=== PATIENT | male | born 1950 | race Caucasian/White ===

== ENCOUNTER 2022-02-10 06:18 | Day surgery (SDC) | payer OTHER, SELFPAY ==
[2022-02-10] MEDS: Tropicam./Phenyleph. (1/2.5%) 5 ML BTL OS ×3 (06:50→07:06)
[2022-02-10 06:52] VITALS: BP 175/88; PULSE 78; RESP 16; TEMP 36.5; O2SAT 98
[2022-02-10 07:09] VITALS: BP 152/83; PULSE 70
--- NOTE | 2022-02-10 07:11 | ANES.PREOP_ITS ---
General Info Date of Service Date Performed: 02/10/22 Height: 5 ft 10 in Weight: 119.4 kg Body Mass Index (BMI): 37.8 Surgical Procedure: Operation Date: 02/10/22 07:40 Proposed Procedure Side Surgeon p Cataract Extraction with IOL Implant Left Joo Martinez MD Meds Allergies and Home Medications Allergies Allergy/AdvReac Type Severity Reaction Status Date / Time ezetimibe AdvReac Severe Other (See Unverified 02/10/22 06:46 Comment) lisinopril AdvReac Mild Other (See Unverified 02/10/22 06:46 Comment) Home Medication Medication Instructions Recorded acetaminophen 650 mg tablet 650 mg PO Q12H PRN 02/06/22 antiarthritic combination no.2 900 900 mg PO DAILY 02/06/22 mg tablet atorvastatin 40 mg tablet 40 mg PO DAILY 02/06/22 cholecalciferol (vitamin D3) 125 5,000 unit PO DAILY 02/06/22 mcg (5,000 unit) tablet (Vitamin D3) diclofenac sodium 75 mg 75 mg PO BID PRN 02/06/22 tablet,delayed release duloxetine 60 mg capsule,delayed 60 mg PO DAILY 02/06/22 release losartan 100 mg tablet 100 mg PO DAILY 02/06/22 magnesium chloride 64 mg 128 mg PO DAILY 02/06/22 tablet,extended release metformin 1,000 mg tablet 1,000 mg PO BID 02/06/22 multivitamin 1 tab PO DAILY 02/06/22 pantoprazole 40 mg tablet,delayed 40 mg PO DAILY 02/06/22 release pregabalin 300 mg capsule 300 mg PO BID 02/06/22 Current Visit Medications: Current Medications Generic Name Dose Route Start Last Admin Trade Name Freq PRN Reason Stop Dose Admin Acetaminophen 1,000 mg 02/10/22 06:00 Acetaminophen 500 Mg Tab PO Q4H PRN PRN Miscellaneous Medication 0 ml 02/10/22 06:00 Prednisolone 1%, Moxifloxacin 0.5%, Nepafenac 0.1% 5ml Btl OS DIRECTED STEVEN Miscellaneous Medication 0 ml 02/10/22 06:00 02/10/22 07:06 Tropicam./Phenyleph. (1/2.5%) 5 Ml Btl OS 1 drp DIRECTED STEVEN Administration Tetracaine HCl 0 ml 02/10/22 06:00 Tetracaine 0.5% 4 Ml Btl OS DIRECTED STEVEN [facility] Medical History Medical History (Updated 02/10/22 @ 06:45 by Angélica Ruvalcaba) Eustachian tube dysfunction Hepatitis C last treatment 2012 Hx of cirrhosis Hypesthesia Microalbuminuria Palpitations Peripheral neuropathy r/t to treatment from hepatitis C Primary insomnia Sensorineural hearing loss, bilateral Spinal stenosis Trochanteric bursitis of right hip Surgical History Surgical History History of liver biopsy History of nasal surgery History of spinal surgery 06/25 Hx of arthroscopy of knee Hx of colonoscopy Hx of decompressive lumbar laminectomy 1996 Hx of esophagogastroduodenoscopy Hx of repair of rotator cuff Hx of total knee arthroplasty Tobacco Smoking/Tobacco Use Status: Never Alcohol Alcohol Intake: current Alcohol intake frequency: holidays/special occasions only Alcohol type: beer Substance Use Substance use: Rarely Substance use type: marijuana Details: Cannibus oil Vital Signs and Lab Results Vital Signs Most Recent Vital Signs in EMR: Most Recent Vital Signs Temp Pulse Resp BP Pulse Ox 36.5 C 70 16 152/83 H 98 02/10/22 06:52 02/10/22 07:09 02/10/22 06:52 02/10/22 07:09 02/10/22 06:52 Point of Care Results Point of Care Results: Finger Stick Blood Glucose 107 02/10/22 06:45 Lab Results Blood Type / Crossmatch: No Data to Display Complete Blood Count: No Data to Display Complete Metabolic Panel: No Data to Display Liver Function Panel: No Data to Display Coagulation Panel: No Data to Display Cardiac Panel: No Data to Display Arterial Blood Gas: No Data to Display Venous Blood Gas: No Data to Display Pancreas Panel: No Data to Display Thyroid Panel: No Data to Display Infectious Disease: No Data to Display Blood Cultures: No Data to Display Toxicology Panel: No Data to Display Anesthesia Assessment and Plan Anesthesia History Personal History: No History of Anesthesia Complications Family History: No Family History of Anesthesia Complications Exercise Tolerance Exercise Tolerance: Metabolic Equivalents>4 Pertinent Negatives Pertinent Negatives: No Symptoms of GERD, No Major Cardiovascular Symptoms or Complaints and No Major Pulmonary Symptoms or Complaints Cardiac & Pulmonary Exam Cardiac Exam: Normal S1/S2 Heart Sounds Pulmonary Exam: Clear Bilateral Breath Sounds Implantable Cardiac Device Does patient have a Pacemaker or an ICD?: No Airway Exam Known Difficult Airway: No Mallampati Class: 2 Mouth Opening: Normal (> 3cm) Thyromental Distance: Greater than 3 cm Neck Range of Motion: Full ROM Neck Circumference: Normal Teeth Condition: Removable Dentures/Plates Upper ASA Classification ASA Score: ASA 3 Emergency Case?: No NPO Status NPO Status: NPO Clears >2 hours, Solids >8 hours Anesthesia Plan Resuscitation Status: Full Code Anesthesia Technique: MAC Anesthesia Airway Planned: Natural Airway Monitors Used: Standard Monitors
[2022-02-10 07:12] VITALS: BMI 37.8
[2022-02-10] MEDS: Tetracaine 0.5% 4 ML BTL OS (07:26)
[2022-02-10] MEDS: Povidone-Iodine Ophth 30 ML BTL (07:26)
[2022-02-10] MEDS: Lidocaine 2% Jelly 6 ML SYR (07:28)
[2022-02-10] MEDS: Balanced Salt Soln.-PLUS 500 ML BAG (07:32)
[2022-02-10 07:54] VITALS: BP 146/83; PULSE 71; RESP 16; TEMP 37; O2SAT 96
--- NOTE | 2022-02-10 07:55 | W.PM.DSUDISC ---
Discharge Plan Disposition Patient Disposition: HOME Condition: Good Discharge Details Attending Provider: Joo Martinez Primary Care Provider: Unknown,Unknown Home Meds and New Rx's Prescriptions: No Action multivitamin Tablet 1 tab PO DAILY atorvastatin 40 mg Tablet 40 mg PO DAILY acetaminophen 650 mg Tablet 650 mg PO Q12H PRN magnesium chloride 64 mg Tablet Extended Release 128 mg PO DAILY pantoprazole 40 mg Tablet,Delayed Release (Dr/Ec) 40 mg PO DAILY metformin 1,000 mg Tablet 1,000 mg PO BID diclofenac sodium 75 mg Tablet,Delayed Release (Dr/Ec) 75 mg PO BID PRN losartan 100 mg Tablet 100 mg PO DAILY duloxetine 60 mg Capsule,Delayed Release(Dr/Ec) 60 mg PO DAILY pregabalin 300 mg Capsule 300 mg PO BID cholecalciferol (vitamin D3) [Vitamin D3] 125 mcg (5,000 unit) Tablet 5,000 unit PO DAILY antiarthritic combination no.2 900 mg Tablet 900 mg PO DAILY Discharge Instructions Stand Alone Forms: Post-op Topical Cataract, Govind Monreal ([facility]U) Discharge Orders Discharge Orders: Discharge Order (Routine); Ordered 02/10/22 Ordered By: Joo Martinez DS: Diagnosis Discharge Diagnosis (1) Nuclear sclerotic cataract of right eye: Status: Resolved
--- NOTE | 2022-02-10 07:56 | W.PM.OP ---
Date of service: 02/10/22 Time of Service: 07:56 Operative Note Operative Note DATE OF PROCEDURE: 02/10/22 PRE-OP DIAGNOSIS: Nuclear cataract, left POST-OP DIAGNOSIS: same PROCEDURE: Cataract extraction using phacoemulsification with intraocular lens implant, left eye SURGEON: Joo Martinez ANESTHESIA TYPE: Local By Surgeon and MAC Refer to Anesthesia Record PATHOLOGY: none sent COMPLICATIONS: None Patient was transported to: same day Patient's condition: stable Implants: David and David / [employer] Tecnis [id number] Indications: Progressive decreased vision due to cataract, left eye Procedure Description: CATARACT SURGERY OPERATIVE REPORT PREOPERATIVE DIAGNOSIS: 1. Nuclear cataract, left eye POSTOPERATIVE DIAGNOSIS: Same OPERATION: 1. Cataract extraction using phacoemulsification with posterior chamber intraocular lens implant, left eye. IOL: IOL Optical Instrument Assembler/Model: David & David / STEVIE Tecnis [id number] IOL Power: + 20.5 diopters IOL Serial Number: [id number] Optic Diameter: 6.0 mm Haptic/Overall Diameter: 13.0 mm PHACO INFO: [employer] Vision System with OZil and Active Fluidics Cumulative Dispersed Energy (CDE): 11.76 seconds SURGEON: Joo Martinez MD, ERIC ANESTHESIA: Monitored A [facility] (MAC), with local sub-tenon's anesthetic infiltration COMPLICATIONS: None SPECIMENS: None INDICATIONS FOR PROCEDURE: The patient is a 72-year-old gentleman with history of diminished visual acuity in his right eye secondary to the development of significant nuclear cataract. The option of cataract surgery was offered to the patient and he felt he was symptomatic enough that he wished to proceed. PROCEDURE: The correct surgical eye was identified and marked as the left eye and the pupil was dilated in the preoperative area using mydriatics and cycloplegics. The dilated pupil size was 6.5 mm. The patient elected to proceed without oral sedation. The patient was brought to the operating room where cardiopulmonary monitoring was instituted and surgical time-out was performed, confirming the correct operative eye and IOL power. Topical anesthesia was administered and ophthalmic povidone-iodine 5% was instilled into the conjunctival fornices. Lidocaine gel was applied to the cornea and the william-ocular area was prepped with Betadine 10% solution and draped in the usual sterile fashion for intraocular surgery, including an aperture drape. A Tegaderm transparent film dressing was cut in half and used to cover the lashes and lid margins. Care was taken to sequester the lashes and lid margins under the Tegaderm dressing. A lid speculum was placed between the lids of the operative eye and the [employer] Rev[employer] operating microscope was maneuvered into position. Moreno scissors were then used to make a conjunctival buttonhole approximately 6mm posterior to the limbus in the inferonasal quadrant. Blunt dissection was carried out to expose bare sclera, and a blunt-tipped sub-tenon?s anesthesia cannula was introduced and passed posteriorly along the globe where non-preserved plain lidocaine was injected into posterior sub-Tenon?s space. A sideport knife was used to make a paracentesis port superiorly/superiortemporally. Intraocular phenylephrine/lidocaine was injected int the anterior chamber.. The anterior chamber was filled with viscoelastic. A keratome knife was used to construct a 2-plane near-clear corneal tunnel extending 2.0mm into clear cornea temporally. A flap was raised on the anterior capsule and capsulorhexis forceps were used to complete a continuous curvilinear capsulorhexis of 4.8 mm. The capsule was noted to be quite thin. Balanced salt solution was then used to perform cortical cleaving hydrodissection and nuclear hydrodelineation until the lens could be freely rotated within the capsular bag. The lens nucleus was then disassembled and removed within the capsular bag and iris plane using phacoemulsification. Residual cortical material was removed using the 45-degree angled silicone I/A tip with 0.3mm port. The posterior capsule was carefully polished to remove as much residual lens epithelial cells as safely possible. The capsular bag was then inflated and the anterior chamber deepened with viscoelastic. The lens implant described above was inserted into the capsular bag using the STEVIE [place] Injector. A Kuglen hook was used to dial the IOL into position. Residual viscoelastic was then removed first from posterior to the IOL, then from the anterior chamber using the I/A handpiece. The lens implant was noted to center nicely within the capsular bag. The incisions were stromally hydrated, and the anterior chamber was reformed using BSS. Then 0.5cc of moxifloxacin 1.0mg/ml were injected into the capsular bag and anterior chamber. The incisions were checked with a Weck spear and found to be secure. Several drops of ophthalmic povidone-iodine 5% were then applied to the eye followed by two drops of Imprimis combination prednisolone/moxifloxacin/nepafenac solution. The drapes were removed and a clear plastic protective eye shield was placed over the eye. The patient was then returned to Same Day Surgery in stable condition.
--- NOTE | 2022-02-10 08:11 | W.ANESPOSTOP ---
Postoperative Evaluation Date, Time and Location Date Performed: 02/10/22 Time Performed: 08:00 Patient Location: Day Surgery Unit Vital Signs Most Recent Imported Vital Signs: Most Recent Vital Signs Temp Pulse Resp BP Pulse Ox 37.0 C 71 16 146/83 H 96 02/10/22 07:54 02/10/22 07:54 02/10/22 07:54 02/10/22 07:54 02/10/22 07:54 Pain Score Most Recent Pain Score: Most Recent Pain Score Pain Level 0 02/10/22 07:54 Assessment Mental Status: Awake (Alert & Oriented to Patient Baseline) Airway and Respiratory Function: Patent airway with normal (patient baseline) respiratory exam Cardiovascular Function: Hemodynamically Stable Hydration Status: Adequately Hydrated Nausea & Vomiting: No Nausea or Vomiting Pain: Pt. Denies Any Pain Peripheral Nerve Block: Patient did not receive a nerve block
== END 2022-02-10 08:16 | disposition home or self-care (01) ==
LOC: SUR 06:20
PROVIDERS: Visit Provider Ophthalmology
PROC: (CPT 66984; principal; 2022-02-10 07:30)
DX: H25.12 Age-related nuclear cataract, left eye (principal)
CPT/HCPCS: 66984; V2632

== ENCOUNTER 2022-02-24 10:21 | Day surgery (SDC) | payer OTHER, SELFPAY ==
[2022-02-24 11:03] VITALS: BP 146/87; PULSE 63; RESP 16; TEMP 36.8; O2SAT 97
[2022-02-24] MEDS: Tropicam./Phenyleph. (1/2.5%) 5 ML BTL OD ×3 (11:14→11:24)
--- NOTE | 2022-02-24 12:03 | W.ANESPRE ---
General Info Date of Service Date Performed: 02/24/22 Height: 5 ft 10 in Weight: 118.4 kg Body Mass Index (BMI): 37.4 Surgical Procedure: Operation Date: 02/24/22 13:40 Proposed Procedure Side Surgeon p Cataract Extraction with IOL Implant Right Joo Martinez MD Meds Allergies and Home Medications Allergies Allergy/AdvReac Type Severity Reaction Status Date / Time ezetimibe AdvReac Severe Other (See Verified 02/24/22 10:57 Comment) lisinopril AdvReac Mild Other (See Verified 02/24/22 10:57 Comment) Home Medication Medication Instructions Recorded acetaminophen 650 mg tablet 650 mg PO Q12H PRN 02/06/22 antiarthritic combination no.2 900 900 mg PO DAILY 02/06/22 mg tablet atorvastatin 40 mg tablet 40 mg PO DAILY 02/06/22 cholecalciferol (vitamin D3) 125 5,000 unit PO DAILY 02/06/22 mcg (5,000 unit) tablet (Vitamin D3) diclofenac sodium 75 mg 75 mg PO BID PRN 02/06/22 tablet,delayed release duloxetine 60 mg capsule,delayed 60 mg PO DAILY 02/06/22 release losartan 100 mg tablet 100 mg PO DAILY 02/06/22 magnesium chloride 64 mg 128 mg PO DAILY 02/06/22 tablet,extended release metformin 1,000 mg tablet 1,000 mg PO BID 02/06/22 multivitamin 1 tab PO DAILY 02/06/22 pantoprazole 40 mg tablet,delayed 40 mg PO DAILY 02/06/22 release pregabalin 300 mg capsule 300 mg PO BID 02/06/22 Current Visit Medications: Current Medications Generic Name Dose Route Start Last Admin Trade Name Freq PRN Reason Stop Dose Admin Acetaminophen 1,000 mg 02/24/22 06:00 Acetaminophen 500 Mg Tab PO Q4H PRN PRN Miscellaneous Medication 0 ml 02/24/22 06:00 Prednisolone 1%, Moxifloxacin 0.5%, Nepafenac 0.1% 5ml Btl OD DIRECTED STEVEN Miscellaneous Medication 0 ml 02/24/22 06:00 02/24/22 11:24 Tropicam./Phenyleph. (1/2.5%) 5 Ml Btl OD 1 drp DIRECTED STEVEN Administration Tetracaine HCl 0 ml 02/24/22 06:00 Tetracaine 0.5% 4 Ml Btl OD DIRECTED [facility] Active Problems Active Problems: Problem Status Onset Code Nuclear sclerotic cataract of right eye H25.11 Medical History Medical History (Updated 02/24/22 @ 10:54 by Booker Orellana) Diabetes type 2, controlled Eustachian tube dysfunction Hepatitis C last treatment 2012 Hx of cirrhosis Hypesthesia Microalbuminuria Palpitations Peripheral neuropathy r/t to treatment from hepatitis C Primary insomnia Sensorineural hearing loss, bilateral Spinal stenosis Trochanteric bursitis of right hip Surgical History Surgical History History of liver biopsy History of nasal surgery History of spinal surgery 06/25 Hx of arthroscopy of knee Hx of colonoscopy Hx of decompressive lumbar laminectomy 1996 Hx of esophagogastroduodenoscopy Hx of repair of rotator cuff Hx of total knee arthroplasty Tobacco Smoking/Tobacco Use Status: Never Alcohol Alcohol Intake: current Alcohol intake frequency: holidays/special occasions only Alcohol type: beer Substance Use Substance use: Rarely Substance use type: marijuana Details: Cannibus oil Vital Signs and Lab Results Vital Signs Most Recent Vital Signs in EMR: Most Recent Vital Signs Temp Pulse Resp BP Pulse Ox 36.8 C 63 16 146/87 H 97 02/24/22 11:03 02/24/22 11:03 02/24/22 11:03 02/24/22 11:03 02/24/22 11:03 Lab Results Blood Type / Crossmatch: No Data to Display Complete Blood Count: No Data to Display Complete Metabolic Panel: No Data to Display Liver Function Panel: No Data to Display Coagulation Panel: No Data to Display Cardiac Panel: No Data to Display Arterial Blood Gas: No Data to Display Venous Blood Gas: No Data to Display Pancreas Panel: No Data to Display Thyroid Panel: No Data to Display Infectious Disease: No Data to Display Blood Cultures: No Data to Display Toxicology Panel: No Data to Display Anesthesia Assessment and Plan Anesthesia History Personal History: No History of Anesthesia Complications Family History: No Family History of Anesthesia Complications Exercise Tolerance Exercise Tolerance: Metabolic Equivalents>4 Pertinent Negatives Pertinent Negatives: No Symptoms of GERD, No Major Cardiovascular Symptoms or Complaints and No Major Pulmonary Symptoms or Complaints Cardiac & Pulmonary Exam Cardiac Exam: Normal S1/S2 Heart Sounds Pulmonary Exam: Clear Bilateral Breath Sounds Implantable Cardiac Device Does patient have a Pacemaker or an ICD?: No Airway Exam Known Difficult Airway: No Mallampati Class: 2 Mouth Opening: Normal (> 3cm) Thyromental Distance: Greater than 3 cm Neck Range of Motion: Full ROM Neck Circumference: Normal Teeth Condition: Removable Dentures/Plates Upper ASA Classification ASA Score: ASA 3 Emergency Case?: No NPO Status NPO Status: NPO Clears >2 hours, Solids >8 hours Anesthesia Plan Resuscitation Status: Full Code Anesthesia Technique: General Anesthesia Airway Planned: Natural Airway Monitors Used: Standard Monitors Preoperative Comments:: No MKO with previous cataract.
[2022-02-24 12:07] VITALS: BMI 37.4
[2022-02-24] MEDS: Balanced Salt Soln.-PLUS 500 ML BAG (12:42)
[2022-02-24] MEDS: Tetracaine 0.5% 4 ML BTL OD (12:42)
[2022-02-24] MEDS: Lidocaine 2% Jelly 6 ML SYR (12:44)
[2022-02-24] MEDS: Povidone-Iodine Ophth 30 ML BTL (12:45)
[2022-02-24 12:52] VITALS: BP 138/87; PULSE 68; RESP 18; TEMP 36.7; O2SAT 98
--- NOTE | 2022-02-24 12:53 | W.PM.DSUDISC ---
Discharge Plan Disposition Patient Disposition: HOME Condition: Good Discharge Details Attending Provider: Joo Martinez Primary Care Provider: Maddie Salazar Home Meds and New Rx's Prescriptions: No Action multivitamin Tablet 1 tab PO DAILY atorvastatin 40 mg Tablet 40 mg PO DAILY acetaminophen 650 mg Tablet 650 mg PO Q12H PRN magnesium chloride 64 mg Tablet Extended Release 128 mg PO DAILY pantoprazole 40 mg Tablet,Delayed Release (Dr/Ec) 40 mg PO DAILY metformin 1,000 mg Tablet 1,000 mg PO BID diclofenac sodium 75 mg Tablet,Delayed Release (Dr/Ec) 75 mg PO BID PRN losartan 100 mg Tablet 100 mg PO DAILY duloxetine 60 mg Capsule,Delayed Release(Dr/Ec) 60 mg PO DAILY pregabalin 300 mg Capsule 300 mg PO BID cholecalciferol (vitamin D3) [Vitamin D3] 125 mcg (5,000 unit) Tablet 5,000 unit PO DAILY antiarthritic combination no.2 900 mg Tablet 900 mg PO DAILY Discharge Instructions Stand Alone Forms: Post-op Topical Cataract, Govind Monreal ([facility]U) Discharge Orders Discharge Orders: Discharge Order (Routine); Ordered 02/24/22 Ordered By: Joo Martinez DS: Diagnosis Discharge Diagnosis (1) Nuclear sclerotic cataract of right eye: Status: Resolved
--- NOTE | 2022-02-24 12:54 | ROE_ITS ---
Date of service: 02/24/22 Time of Service: 12:54 Operative Note Operative Note DATE OF PROCEDURE: 02/24/22 PRE-OP DIAGNOSIS: Nuclear cataract, right eye POST-OP DIAGNOSIS: same PROCEDURE: Cataract extraction using phacoemulsification with intraocular lens implant, right eye SURGEON: Joo Martinez ANESTHESIA TYPE: Local By Surgeon and MAC Refer to Anesthesia Record ESTIMATED BLOOD LOSS: 0 PATHOLOGY: none sent COMPLICATIONS: None Patient was transported to: same day Patient's condition: stable Implants: David & David/STEVIE Tecnis [id number] Indications: Progressive visual loss due to cataract, right eye Procedure Description: CATARACT SURGERY OPERATIVE REPORT PREOPERATIVE DIAGNOSIS: 1. Nuclear cataract, right eye POSTOPERATIVE DIAGNOSIS: Same OPERATION: 1. Cataract extraction using phacoemulsification with posterior chamber intraocular lens implant, right eye. IOL: IOL Therapist Speech/Model: David & David / STEVIE Tecnis [id number] IOL Power: + 21.5 diopters IOL Serial Number: [id number] Optic Diameter: 6.0mm Haptic/Overall Diameter: 13.0mm PHACO INFO: [employer] Vision System with OZil and Active Fluidics Cumulative Dispersed Energy (CDE): 13.96 seconds SURGEON: Joo Martinez MD, ERIC ANESTHESIA: Monitored Anesthesia Care (MAC), with local sub-tenon's anesthetic infiltration COMPLICATIONS: None SPECIMENS: None INDICATIONS FOR PROCEDURE: The patient is a 72-year-old gentleman with history of diminished visual acuity in both eyes secondary to development of bilateral nuclear cataract. He has already undergone cataract surgery in the left eye and is doing well postoperatively. He now presents for cataract surgery in the right eye. PROCEDURE: The correct surgical eye was identified and marked as the right eye and the pupil was dilated in the preoperative area using mydriatics and cycl oplegics. The dilated pupil size was 7.0 mm. The patient elected to proceed without oral sedation. The patient was brought to the operating room where cardiopulmonary monitoring was instituted and surgical time-out was performed, confirming the correct operative eye and IOL power. Topical anesthesia was administered and ophthalmic povidone-iodine 5% was instilled into the conjunctival fornices. Lidocaine gel was applied to the cornea and the william-ocular area was prepped with Betadine 10% solution and draped in the usual sterile fashion for intraocular surgery, including an aperture drape. A Tegaderm transparent film dressing was cut in half and used to cover the lashes and lid margins. Care was taken to sequester the lashes and lid margins under the Tegaderm dressing. A lid speculum was placed between the lids of the operative eye and the [employer] operating microscope was maneuvered into position. Moreno scissors were then used to make a conjunctival buttonhole approximately 6mm posterior to the limbus in the inferonasal quadrant. Blunt dissection was carried out to expose bare sclera, and a blunt-tipped sub-tenon?s anesthesia cannula was introduced and passed posteriorly along the globe where non- preserved plain lidocaine was injected into posterior sub-Tenon?s space. A sideport knife was used to make a paracentesis port inferotemporally. Intraocular phenylephrine/lidocaine was injected into the anterior chamber. The anterior chamber was filled with viscoelastic. A keratome knife was used to construct a 2-plane near-clear corneal tunnel extending 2.0mm into clear cornea superiortemporally. A flap was raised on the anterior capsule and capsulorhexis forceps were used to complete a continuous curvilinear capsulorhexis of 5.5 mm. Balanced salt solution was then used to perform cortical cleaving hydrodissection and nuclear hydrodelineation until the lens could be freely rotated within the capsular bag. The lens nucleus was then disassembled and removed within the capsular bag and iris plane using phacoemulsification. Residual cortical material was removed using the I/A handpiece. The posterior capsule was carefully polished to remove as much residual lens epithelial cells as safely possible. The capsular bag was then inflated and the anterior chamber deepened with viscoelastic. The lens implant described above was inserted into the capsular bag using the STEVIE [place] Injector. A Kuglen hook was used to dial the IOL into position. Residual viscoelastic was then removed first from posterior to the IOL, then from the anterior chamber using the I/A handpiece. The lens implant was noted to center nicely within the capsular bag. The incisions were stromally hydrated, and the anterior chamber was reformed using BSS. Then 0.5cc of moxifloxacin 1.0mg/ml were injected into the capsular bag and anterior chamber. The incisions were checked with a Weck spear and found to be secure. Several drops of ophthalmic povidone-iodine 5% were then applied to the eye followed by two drops of Imprimis combination prednisolone/moxifloxacin/nepafenac solution. The drapes were removed and a clear plastic protective eye shield was placed over the eye. The patient was then returned to Same Day Surgery in stable condition.
--- NOTE | 2022-02-24 13:07 | W.ANESPOSTOP ---
Postoperative Evaluation Date, Time and Location Date Performed: 02/24/22 Time Performed: 13:00 Patient Location: Day Surgery Unit Vital Signs Most Recent Imported Vital Signs: Most Recent Vital Signs Temp Pulse Resp BP Pulse Ox 36.7 C 68 18 138/87 98 02/24/22 12:52 02/24/22 12:52 02/24/22 12:52 02/24/22 12:52 02/24/22 12:52 Pain Score Most Recent Pain Score: Most Recent Pain Score Pain Level 0 02/24/22 12:52 Assessment Mental Status: Awake (Alert & Oriented to Patient Baseline) Airway and Respiratory Function: Patent airway with normal (patient baseline) respiratory exam Cardiovascular Function: Hemodynamically Stable Hydration Status: Adequately Hydrated Nausea & Vomiting: No Nausea or Vomiting Pain: Pt. Denies Any Pain Peripheral Nerve Block: Patient did not receive a nerve block
== END 2022-02-24 13:20 | disposition home or self-care (01) ==
LOC: SUR 10:22
PROVIDERS: PCP Physician Assistant; Visit Provider Ophthalmology
PROC: (CPT 66984; principal; 2022-02-24 13:30)
DX: H25.11 Age-related nuclear cataract, right eye (principal); E11.42 Type 2 diabetes mellitus with diabetic polyneuropathy; Z79.84 Long term (current) use of oral hypoglycemic drugs
CPT/HCPCS: 66984; V2632